=== PATIENT | male | born 1975 | race African-American/Black ===

== ENCOUNTER → 2024-02-29 15:57 | Outpatient (REF) | payer BC, SELFPAY ==
[2024-02-29 17:04] LABS: % Basophils 0.6 % (0-2); % Eosinophils 3.6 % (0-6); % Immature Granulocytes 0.2 % (0-0.5); % Lymphocytes 20.6 % (20.5-51.1); % Monocytes 8.8 % (1.7-9.3); % Neutrophils 66.2 % (42.2-75.2); Absolute Basophils 0.1 10^3/uL (0-0.2); Absolute Eosinophils 0.3 10^3/uL (0-0.7); Absolute Lymphocytes 1.9 10^3/uL (1.2-3.4); Absolute Monocytes 0.8 10^3/uL (0.1-0.6); Absolute Neutrophils 6.2 10^3/uL (1.4-6.5); Hemoglobin 14.6 g/dL (13.0-18.0); Mean Corp Hgb Conc. 31.7 g/dL (33.0-37.0); Mean Corpuscular Hgb 28.4 pg (27.0-31.0); Mean Corpuscular Volume 89.5 fL (80.0-94.0); Nucleated Red Blood Cells % 0 % (-); Platelet Count 352 10^3/uL (130-400); Red Blood Cell Count 5.14 10^6/uL (4.70-6.10); Red Cell Dist. Width 14.1 % (11.5-14.5); White Blood Cell Count 9.3 10^3/uL (4.8-10.8)
[2024-02-29 17:30] LABS: ALT (SGPT) 15 U/L (0-50); AST (SGOT) 21 U/L (17-59); Albumin 4.2 g/dl (3.5-5.0); Alkaline Phosphatase 82 U/L (38-126); Blood Urea Nitrogen 15 mg/dl (9-20); Calcium 9.5 mg/dl (8.4-10.2); Carbon Dioxide 30 mmol/L (22-30); Chloride 105 mmol/L (98-107); Glucose 113 mg/dl (70-99); Potassium 4.7 mmol/L (3.5-5.1); Sodium 143 mmol/L (135-145); Total Bilirubin 0.4 mg/dl (0.2-1.3); eGFR > 60.00
== END ==
LOC: RCS 15:57
PROVIDERS: ATTENDING PHYSICIAN Podiatrist Foot Surgery; FAMILY PHYSICIAN Family Medicine
DX: M20.42 Other hammer toe(s) (acquired), left foot (principal)
CPT/HCPCS: 36415; 80053; 85025; 93005

== ENCOUNTER 2024-03-19 06:24 | Day surgery (SDC) | payer BC, SELFPAY ==
--- NOTE | 2024-03-15 13:52 | PTCARENOTE ---
Abn ECG, Dr. Berumen made aware and reviewed, no requests received.
[2024-03-19 11:20] VITALS: BP 166/106
[2024-03-19 11:24] VITALS: BMI 27.0
[2024-03-19 11:25] VITALS: BMI 27.0
[2024-03-19] MEDS: NORMOSOL-R/PLASMALYTE-A 1000 IV (11:39)
[2024-03-19 13:30] VITALS: BP 169/104
[2024-03-19 13:32] VITALS: BP 150/104
[2024-03-19 13:45] VITALS: BP 160/103
[2024-03-19 14:00] VITALS: BP 167/108
[2024-03-19 14:15] VITALS: BP 159/98
== END 2024-03-19 14:36 | disposition home or self-care (01) ==
LOC: SDS 06:24
PROVIDERS: ATTENDING PHYSICIAN Podiatrist Foot Surgery
DX: M20.42 Other hammer toe(s) (acquired), left foot (principal); M77.8 Other enthesopathies, not elsewhere classified; M25.775 Osteophyte, left foot
CPT/HCPCS: 28285